=== PATIENT | female | born 1985 | race Caucasian/White ===

== ENCOUNTER 2022-12-10 18:22 | Emergency (ER) | payer SELFPAY ==
[~2022-12-10 18:22] MED LIST: CYCL10TA9 PO; DEPO INJ; NAPR-243 PO
--- NOTE | 2022-12-10 19:04 | ED Abdominal Pain ---
General Chief Complaint: Abdominal/GI Problems Stated Complaint: ABD PAIN Source of Information: Patient Exam Limitations: No Limitations History of Present Illness Date Seen by Provider: Dec 10, 2022 Time Seen by Provider: 18:49 Initial Comments 37-year-old female presents to the ER with complaints of right-sided sharp stabbing abdominal pain which started on Thursday. She states that she went to [facility] yesterday, states that it did not figure out why she was having pain. They told her to come to the ER if her pain became worse. She states that her pain became worse today. Patient is complaining of right upper and right lower quadrant abdominal pain. She denies fevers, nausea, vomiting, dysuria, vaginal bleeding, discharge. States she had 1 loose stool last night. Last menstrual cycle was November 18. She has a history of kidney stones, states this does not feel like a kidney stone. Has not had her gallbladder or appendix removed. She has had her tubes tied. Allergies and Home Medications Allergies Coded Allergies: No Known Drug Allergies (Unverified , 12/24/10) Patient Home Medication List Home Medication List Reviewed: Yes Cyclobenzaprine Hcl (Cyclobenzaprine Hcl) 10 Mg Tablet, 1 EACH PO Q8HR PRN Prescribed by: ELLIE SAUCEDA on 12/24/10 1039 Naproxen (Naprosyn) 500 Mg Tablet, 1 EACH PO BID PRN Prescribed by: ELLIE SAUCEDA on 12/24/10 1039 [Depo Inj] , (Reported) Entered as Reported by: DEBBI WU on 12/24/10 0921 Review of Systems Review of Systems Constitutional: see HPI Physical Exam Vital Signs Vital Signs - First Documented 12/10/22 18:51 Temp 37.1 Pulse 78 Resp 16 B/P (MAP) 182/108 (132) Pulse Ox 100 O2 Delivery Room Air Capillary Refill : Height/Weight/BMI Height: '" Weight: lbs. oz. kg; BMI Method:Stated General Appearance: WD/WN, no apparent distress Neck: supple, normal inspection Respiratory: lungs clear, normal breath sounds, no respiratory distress, no accessory muscle use Cardiovascular: regular rate, rhythm Gastrointestinal: normal bowel sounds, soft, tenderness (Epigastric and right l ower quadrant tenderness) Extremities: normal range of motion, normal inspection Neurologic/Psychiatric: alert, normal mood/affect Skin: normal color, warm/dry Progress/Results/Core Measures Results/Orders Lab Results Laboratory Tests Test 12/10/22 19:01 12/10/22 19:08 Range/Units Urine Color YELLOW Urine Clarity CLOUDY Urine pH 6.0 5-9 Urine Specific [place] 1.025 H 1.016-1.022 Urine Protein NEGATIVE NEGATIVE Urine Glucose (UA) NEGATIVE NEGATIVE Urine Ketones NEGATIVE NEGATIVE Urine Nitrite NEGATIVE NEGATIVE Urine Bilirubin NEGATIVE NEGATIVE Urine Urobilinogen 0.2 < = 1.0 MG/DL Urine Leukocyte Esterase 2+ H NEGATIVE Urine RBC (Auto) NEGATIVE NEGATIVE Urine RBC 0-2 /HPF Urine WBC 2-5 /HPF Urine Squamous Epithelial Cells 25-50 H /HPF Urine Crystals PRESENT H /LPF Urine Amorphous Sediment FEW RONEN URATES H /LPF Urine Bacteria FEW H /HPF Urine Casts PRESENT /LPF Urine Hyaline Casts 0-2 H /LPF Urine Mucus MODERATE H /LPF Urine Culture Indicated NO White Blood Count 10.4 4.3-11.0 10^3/uL Red Blood Count 4.31 3.80-5.11 10^6/uL Hemoglobin 12.4 11.5-16.0 g/dL Hematocrit 37 35-52 % Mean Corpuscular Volume 86 80-99 fL Mean Corpuscular Hemoglobin 29 25-34 pg Mean Corpuscular Hemoglobin Concent 34 32-36 g/dL Red Cell Distribution Width 13.2 10.0-14.5 % Platelet Count 222 130-400 10^3/uL Mean Platelet Volume 11.1 9.0-12.2 fL Immature Granulocyte % (Auto) 0 % Neutrophils (%) (Auto) 59 42-75 % Lymphocytes (%) (Auto) 30 12-44 % Monocytes (%) (Auto) 9 0-12 % Eosinophils (%) (Auto) 1 0-10 % Basophils (%) (Auto) 1 0-10 % Neutrophils # (Auto) 6.2 1.8-7.8 10^3/uL Lymphocytes # (Auto) 3.1 1.0-4.0 10^3/uL Monocytes # (Auto) 1.0 0.0-1.0 10^3/uL Eosinophils # (Auto) 0.1 0.0-0.3 10^3/uL Basophils # (Auto) 0.1 0.0-0.1 10^3/uL Immature Granulocyte # (Auto) 0.0 0.0-0.1 10^3/uL Sodium Level 137 135-145 MMOL/L Potassium Level 3.1 L 3.6-5.0 MMOL/L Chloride Level 107 98-107 MMOL/L Carbon Dioxide Level 22 21-32 MMOL/L Anion Gap 8 5-14 MMOL/L Blood Urea Nitrogen 10 7-18 MG/DL Creatinine 0.88 0.60-1.30 MG/DL Estimat Glomerular Filtration Rate 87 BUN/Creatinine Ratio 11 Glucose Level 101 70-105 MG/DL Calcium Level 9.2 8.5-10.1 MG/DL Corrected Calcium 9.0 8.5-10.1 MG/DL Total Bilirubin 0.5 0.1-1.0 MG/DL Aspartate Amino Transf (AST/SGOT) 21 5-34 U/L Alanine Aminotransferase (ALT/SGPT) 20 0-55 U/L Alkaline Phosphatase 84 40-136 U/L C-Reactive Protein High Sensitivity 0.07 0.00-0.50 MG/DL Total Protein 7.4 6.4-8.2 GM/DL Albumin 4.3 3.2-4.5 GM/DL Amylase Level 53 25-125 U/L Lipase 20 8-78 U/L My Orders Orders - YONATAN XAVIER APRN Comprehensive Metabolic Panel (12/10/22 18:49) Lipase (12/10/22 18:49) Amylase (12/10/22 18:49) Ua Culture If Indicated (12/10/22 18:49) Urine Bedside (12/10/22 18:49) Ed Iv/Invasive Line Start (12/10/22 18:49) Cbc With Automated Diff (12/10/22 18:49) Ct Abdomen/Pelvis W (12/10/22 18:59) Iohexol Injection (Omnipaque 350 Mg/Ml 1 (12/10/22 19:15) Received Contrast (Hold Metformin- Contr (12/10/22 19:15) Ns (Ivpb) (Sodium Chloride 0.9% Ivpb Bag (12/10/22 19:15) Ns Iv 1000 Ml (Sodium Chloride 0.9%) (12/10/22 19:15) Ketorolac Injection (Toradol Injection) (12/10/22 19:15) Hs C Reactive Protein (12/10/22 19:04) Potassium Chloride (Tablet) (K Dur Table (12/10/22 21:15) Pantoprazole Injection (Protonix Injecti (12/10/22 21:15) Medications Given in ED Current Medications Medications Dose Ordered Sig/Cassia Route Start Time Stop Time Status Last Admin Dose Admin Iohexol 100 ml ONCE ONCE IV 12/10/22 19:15 12/10/22 19:16 DC 12/10/22 19:49 80 ML Ketorolac Tromethamine 15 mg ONCE ONCE IVP 12/10/22 19:15 12/10/22 19:16 DC 12/10/22 19:18 15 MG Sodium Chloride 100 ml ONCE ONCE IV 12/10/22 19:15 12/10/22 19:16 DC 12/10/22 19:49 80 ML Vital Signs/I&O 12/10/22 18:51 Temp 37.1 Pulse 78 Resp 16 B/P (MAP) 182/108 (132) Pulse Ox 100 O2 Delivery Room Air Progress Progress Note : Progress Note Patient seen and evaluated, resting comfortably in bed, no acute distress. Based on exam and symptoms, work-up initiated including CBC, CMP, amylase, lipase, UA, urine , CRP, CT abdomen pelvis with contrast ordered. IV fluids and Toradol ordered. 2018 labs reviewed. CBC grossly normal. CMP grossly normal, potassium slightly low 3.1. Amylase and lipase normal. Urinalysis shows elevated urine specific gravity 1.025. 2+ leukocytes, 2-5 WBCs, 25-50 squamous epithelial cells, few bacteria. This is likely a contaminated specimen. Waiting on CT results at this time. Will order oral potassium after results of CT if normal. 2[address] CT reviewed. No identified acute abnormality. Small fat-containing umbilical hernia, small amount of free pelvic fluid which is likely physiologic. Results discussed with patient. I offered a GI cocktail or Protonix. Patient states she would like to try the Protonix. Oral potassium ordered for low potassium level. Will prescribe few days worth of potassium as well. We will also prescribe omeprazole. I think this is likely gastritis. Urinalysis is likely contaminated, patient reports that [facility] is doing a culture on the urine sample she gave yesterday. I will let them determine if she needs an antibiotic at that time since patient does not have any urinary tract infection symptoms at this time. Discharge instructions and return precautions provided. Diagnostic Imaging Diagonstic Imaging: CT Plain Films/CT/US/NM/MRI: abdomen, pelvis Comments [facility]. [place], [place] NAME: NINA LY [facility] REC#: [id number] PT STATUS: REG ER : 1985 PHYSICIAN: YONATAN XAVIER APRN ADMIT DATE: 12/10/22/ER Draft Date of Exam:12/10/22 CT ABDOMEN/PELVIS W PROCEDURE: CT abdomen and pelvis with contrast. TECHNIQUE: Multiple contiguous axial images were obtained through the abdomen and pelvis after administration of intravenous contrast. Auto Exposure Controls were utilized during the CT exam to meet ALARA standards for radiation dose reduction. All CT scans use one or more of the following dose optimizing techniques: automated exposure control, MA and/or KvP adjustment based on patient size and exam type or iterative reconstruction. DATE: December 10, 2022. COMPARISON: None. INDICATION: 37-year-old female, right-sided abdominal pain. FINDINGS: The visualized portions of the lung bases are clear. The heart is not enlarged. There is no pericardial effusion. The liver is unremarkable in size and contour. There is no identified liver lesion. The main, right and left portal veins are patent. The gallbladder is unremarkable. There is no intrahepatic or extrahepatic bile duct dilation. The main pancreatic duct is not abnormally dilated. Unremarkable appearance of the pancreatic parenchyma. The spleen is normal in size. The adrenal glands are unremarkable. Unremarkable appearance of the renal parenchyma. The urinary collecting systems are not distended. There is no identified renal or ureteral stone. The urinary bladder is unremarkable. There is a very small amount of free pelvic fluid which may be physiologic. The intestinal tract is not distended. There is no free intraperitoneal air. There is no drainable fluid collection. The appendix is unremarkable. There is a small fat-containing umbilical hernia. There is no identified abnormally enlarged lymph node in the abdomen or pelvis which meets CT size criteria for adenopathy. There is no identified acute bony abnormality. IMPRESSION: CT abdomen and pelvis: 1. No identified acute abnormality in the abdomen or pelvis. 2. Very small amount of free pelvic fluid which is most likely physiologic. Dictated on workstation # [id number] Dict: 12/10/222026 Trans: 12/10/222057 [facility] [id number] Interpreted by: JOURDAN BALDERRAMA MD Electronically signed by: Departure Impression Primary Impression: Gastritis Qualified Codes: K29.70 - Gastritis, unspecified, without bleeding Disposition: HOME, SELF-CARE Condition: Stable Departure-Patient Inst. Decision time for Depature: 21:08 Referrals: [facility] (PCP/Family) Primary Care Physician Patient Instructions: Gastritis Add. Discharge Instructions: You should cut out acidic foods, spicy foods, caffeine, alcohol, medications like ibuprofen or other NSAIDs to see if this helps your abdominal pain. Take omeprazole once a day for 6 weeks. Omeprazole can take a while to start working. You can take Tums [id number] until the omeprazole starts working. Take potassium once a day for the next 5 days. Increase potassium in your diet by eating bananas, potatoes, green leafy vegetables. Follow-up with your primary care provider. Return for any new, concerning, or worsening symptoms. All discharge instructions reviewed with patient and/or family. Voiced understanding. Scripts Potassium Chloride (Potassium Chloride) 20 Meq Tablet.er 20 MEQ PO DAILY for 5 Days, #5 TAB 0 Refills Prov: YONATAN XAVIER APRN 12/10/22 Omeprazole (Omeprazole) 20 Mg Tablet.dr 20 MG PO DAILY for 42 Days, #42 TAB 0 Refills Prov: YONATAN XAVIER APRN 12/10/22 YONATAN XAVIER APRN Dec 10, 2022 19:04
[2022-12-10 19:08] LABS: BILIRUBIN,URINE NEGATIVE (NEGATIVE); CLARITY,URINE CLOUDY; COLOR,URINE YELLOW; GLUCOSE, URINE (UA) NEGATIVE (NEGATIVE); KETONES,URINE NEGATIVE (NEGATIVE); LEUKOCYTE ESTERASE ,URINE 2+ (NEGATIVE); NITRITE,URINE NEGATIVE (NEGATIVE); PROTEIN,URINE NEGATIVE (NEGATIVE)
[2022-12-10] MEDS ORDERED: NS 100 ML (IVPB) BAG IV ONE (19:15)
[2022-12-10] MEDS ORDERED: HOLD METFORMIN - RECEIVED CONTRAST 20 ML VIAL IV SCH (19:15)
[2022-12-10] MEDS ORDERED: KETOROLAC 15 MG/ML VIAL IVP ONE (19:15)
[2022-12-10] MEDS ORDERED: NS IV 1000 ML 1,000 ML IV SCH (19:15)
[2022-12-10] MEDS ORDERED: IOHEXOL 350 MG/ML 100 ML (OMNIPAQUE 350) VIAL IV ONE (19:15)
[2022-12-10 19:17] LABS: BASOPHILS # (AUTO) 0.1 10^3/uL (0.0-0.1); BASOPHILS % (AUTO) 1 % (0-10); EOSINOPHILS # (AUTO) 0.1 10^3/uL (0.0-0.3); EOSINOPHILS % (AUTO) 1 % (0-10); HEMATOCRIT 37 % (35-52); HEMOGLOBIN 12.4 g/dL (11.5-16.0); LYMPHOCYTES # (AUTO) 3.1 10^3/uL (1.0-4.0); LYMPHOCYTES % (AUTO) 30 % (12-44); MEAN CORPUSCULAR HEMOGLOBIN 29 pg (25-34); MEAN CORPUSCULAR HGB CONC 34 g/dL (32-36); MEAN CORPUSCULAR VOLUME 86 fL (80-99); MEAN PLATELET VOLUME 11.1 fL (9.0-12.2); MONOCYTES % (AUTO) 9 % (0-12); NEUTROPHILS # (AUTO) 6.2 10^3/uL (1.8-7.8); NEUTROPHILS % (AUTO) 59 % (42-75); PLATELET COUNT 222 10^3/uL (130-400); WHITE BLOOD COUNT 10.4 10^3/uL (4.3-11.0)
[2022-12-10 19:18] LABS: BACTERIA,URINE FEW /HPF; RBC,URINE 0-2 /HPF; SQUAMOUS EPITHELIAL CELL,UR 25-50 /HPF
[2022-12-10 19:19] LABS: AMORPHOUS SEDIMENT,UR FEW AMOR URATES /LPF; HYALINE CASTS, URINE 0-2 /LPF
[2022-12-10 19:41] LABS: ALBUMIN 4.3 GM/DL (3.2-4.5); BILIRUBIN,TOTAL 0.5 MG/DL (0.1-1.0); CALCIUM 9.2 MG/DL (8.5-10.1); CREATININE SERUM 0.88 MG/DL (0.60-1.30); POTASSIUM 3.1 MMOL/L (3.6-5.0); TOTAL PROTEIN 7.4 GM/DL (6.4-8.2)
--- NOTE | 2022-12-10 20:58 | Diagnostic Imaging Report ---
PROCEDURE: CT abdomen and pelvis with contrast. TECHNIQUE: Multiple contiguous axial images were obtained through the abdomen and pelvis after administration of intravenous contrast. Auto Exposure Controls were utilized during the CT exam to meet ALARA standards for radiation dose reduction. All CT scans use one or more of the following dose optimizing techniques: automated exposure control, MA and/or KvP adjustment based on patient size and exam type or iterative reconstruction. DATE: December 10, 2022. COMPARISON: None. INDICATION: 37-year-old female, right-sided abdominal pain. FINDINGS: The visualized portions of the lung bases are clear. The heart is not enlarged. There is no pericardial effusion. The liver is unremarkable in size and contour. There is no identified liver lesion. The main, right and left portal veins are patent. The gallbladder is unremarkable. There is no intrahepatic or extrahepatic bile duct dilation. The main pancreatic duct is not abnormally dilated. Unremarkable appearance of the pancreatic parenchyma. The spleen is normal in size. The adrenal glands are unremarkable. Unremarkable appearance of the renal parenchyma. The urinary collecting systems are not distended. There is no identified renal or ureteral stone. The urinary bladder is unremarkable. There is a very small amount of free pelvic fluid which may be physiologic. The intestinal tract is not distended. There is no free intraperitoneal air. There is no drainable fluid collection. The appendix is unremarkable. There is a small fat-containing umbilical hernia. There is no identified abnormally enlarged lymph node in the abdomen or pelvis which meets CT size criteria for adenopathy. There is no identified acute bony abnormality. IMPRESSION: CT abdomen and pelvis: 1. No identified acute abnormality in the abdomen or pelvis. 2. Very small amount of free pelvic fluid which is most likely physiologic. Dictated by: Dictated on workstation # [id number]
[2022-12-10] MEDS ORDERED: OMEP20TA56 PO (21:13)
[2022-12-10] MEDS ORDERED: POTA-330 PO (21:13)
[2022-12-10] MEDS ORDERED: PANTOPRAZOLE 40 MG (PROTONIX) VIAL IV ONE (21:15)
[2022-12-10] MEDS ORDERED: KCL 20 MEQ TAB (K-DUR) PO ONE (21:15)
[2022-12-10 21:21] VITALS: BP 165/86
== END 2022-12-10 21:21 | disposition home or self-care (01) ==
LOC: EDUNIT# 18:22 → ER 18:23
DX: K29.70 Gastritis, unspecified, without bleeding (principal); E87.6 Hypokalemia; Z28.310 Unvaccinated for COVID-19
CPT/HCPCS: 36415; 74177; 80053; 81000; 82150; 83690; 84703; 85025; 86141